=== PATIENT | female | born 1945 | race Caucasian/White ===

== ENCOUNTER 2016-08-13 05:27 | Day surgery (SDC) | payer MEDICARE, OTHER ==
[~2016-08-13] VITALS: Ht 162.6 cm; Wt 110.3 kg
[2016-08-13] VITALS (7 sets, daily range): BP systolic 104–137; BP diastolic 54–86; PULSE 16–75; TEMP 97.6–98.1
[~2016-08-13 05:27] MED LIST: ALEVE 220MG220 MG PO; AMITRIPTYLINE H25 M1 PO; ASPIRIN E.C. 8181 MG PO; BIAXIN 500MG T500 MG PO; CAL-MAG1 TAB PO; CLARITIN 1010 MG/TAB PO; FLEXERIL 1010 MG/TAB PO; HYZAAR 50-12.1 UDTAB PO; LORTAB 5/500 501 TAB PO; MOBIC15 MG PO; MULTIPLE VITAMI1 CAP PO; NEXIUM40 MG PO; NORCO 325 MG-51 TAB PO; PEPCID 20MG TAB20 MG PO; POTASSIUM/CALCIUM; PREDNISONE20 MG PO; PROAIR HFA0.09 MG/AC IH; SYNTHROID 0.0.025 MG PO; SYNTHROID0.05 MG/TA PO; TRIAMTERENE AND1 TA1 PO; VALIUM 5MG T5 MG/TAB PO; [UNRECOGNIZED DRUG - OTHER]; [UNRECOGNIZED DRUG - OTHER] PO; [UNRECOGNIZED DRUG - OTHER] PO
[2016-08-13] MEDS ORDERED: VITAMINC1000TA PO (06:39)
[2016-08-13] MEDS ORDERED: CALCIUM 600-D 61 TAB PO (06:39)
[2016-08-13] MEDS ORDERED: MASON NATURAL1200 MG PO (06:40)
[2016-08-13] MEDS ORDERED: NORCO 325 MG-7.1 TAB PO (10:50)
== END 2016-08-13 11:05 | disposition home or self-care (01) ==
LOC: SDCO 05:27
DX: S83.242A Other tear of medial meniscus, current injury, left knee, initial encounter (principal); M94.262 Chondromalacia, left knee; M11.262 Other chondrocalcinosis, left knee; M19.90 Unspecified osteoarthritis, unspecified site; Z87.19 Personal history of other diseases of the digestive system; E07.9 Disorder of thyroid, unspecified; I10 Essential (primary) hypertension; Z79.899 Other long term (current) drug therapy
CPT/HCPCS: J0171; J0690; J1100; J1170; J1885; J2405; J2704; J3010; J7120

== ENCOUNTER → 2017-11-07 | Outpatient (CLI) | payer MEDICARE, OTHER ==
[~2017-11-07] MED LIST changes: +CALCIUM 600-D 61 TAB PO; +MASON NATURAL1200 MG PO; +NORCO 325 MG-7.1 TAB PO; +VITAMINC1000TA PO
== END ==
LOC: MC.RAD 10:13
DX: Z12.31 Encounter for screening mammogram for malignant neoplasm of breast (principal)

== ENCOUNTER 2018-03-24 07:00 | Day surgery (SDC) | payer MEDICARE, OTHER ==
[~2018-03-24] VITALS: Ht 162.6 cm; Wt 116.2 kg
[2018-03-24] VITALS (15 sets, daily range): BP systolic 87–147; BP diastolic 55–113; PULSE 53–75; TEMP 97.7
[~2018-03-24 07:00] MED LIST changes: -SYNTHROID0.05 MG/TA PO; +SYNTHROID0.075 MG/T PO
[2018-03-24] MEDS ORDERED: ASPIRIN 81M81 MG/TA2 PO (08:03)
[2018-03-24] MEDS ORDERED: MYRBETR25MG PO (08:12)
[2018-03-24 08:41] LABS: HEMOGLOBIN 11.9 g/dl (12.5-16.0); MEAN CELL VOLUME 93 fl (80.0-100.0); MEAN CORPUSCULAR HEMOGLOBIN 31 pg (27.0-31.0); MEAN CORPUSCULAR HGB CONC 33 g/dl (33.0-37.0); PLATELET COUNT 289 K/mm3 (130-400); RED BLOOD COUNT 3.89 M/mm3 (4.10-5.30); REDCELL DISTRIBUTION WIDTH-CV 13.9 % (11.5-14.5)
[2018-03-24 08:43] LABS: HEMATOCRIT 36.3 % (37.0-47.0)
[2018-03-24 08:47] LABS: INR 0.9 (0.8-3.0); PROTHROMBIN TIME 10.3 SECONDS (9.7-12.8)
[2018-03-24 09:02] LABS: CALCIUM 8.9 mg/dL (8.4-10.2); CREATININE, serum 0.91 mg/dL (0.52-1.25); POTASSIUM 4.1 mmol/L (3.4-5.0)
== END 2018-03-24 15:35 | disposition home or self-care (01) ==
LOC: COL.CAR 07:00
PROVIDERS: Internal Medicine Cardiovascular Disease
DX: R94.39 Abnormal result of other cardiovascular function study (principal); I10 Essential (primary) hypertension; E78.5 Hyperlipidemia, unspecified; G47.33 Obstructive sleep apnea (adult) (pediatric); E03.9 Hypothyroidism, unspecified; K21.9 Gastro-esophageal reflux disease without esophagitis; E78.2 Mixed hyperlipidemia; N30.10 Interstitial cystitis (chronic) without hematuria; R56.9 Unspecified convulsions; J45.909 Unspecified asthma, uncomplicated; M47.896 Other spondylosis, lumbar region; M85.80 Other specified disorders of bone density and structure, unspecified site; R53.83 Other fatigue; Z88.8 Allergy status to other drugs, medicaments and biological substances; Z88.5 Allergy status to narcotic agent; Z88.1 Allergy status to other antibiotic agents; Z88.6 Allergy status to analgesic agent; Z90.710 Acquired absence of both cervix and uterus; Z90.49 Acquired absence of other specified parts of digestive tract; Z85.828 Personal history of other malignant neoplasm of skin; Z87.891 Personal history of nicotine dependence; Z82.49 Family history of ischemic heart disease and other diseases of the circulatory system
CPT/HCPCS: C1769; J1644; J2250; J3010; Q9967

== ENCOUNTER → 2018-06-07 | Outpatient (CLI) | payer MEDICARE, OTHER ==
[~2018-06-07] MED LIST changes: +ASPIRIN 81M81 MG/TA2 PO; +MYRBETR25MG PO
== END ==
LOC: MHCPAIN 09:43
DX: G89.29 Other chronic pain (principal); M47.817 Spondylosis without myelopathy or radiculopathy, lumbosacral region; M53.3 Sacrococcygeal disorders, not elsewhere classified
CPT/HCPCS: G0463

== ENCOUNTER → 2018-06-15 | Outpatient (CLI) | payer MEDICARE, OTHER | LOC: MHCPAIN 12:40 | DX: M47.817 Spondylosis without myelopathy or radiculopathy, lumbosacral region (principal); M54.16 Radiculopathy, lumbar region | CPT/HCPCS: J1040; Q9967 ==

== ENCOUNTER → 2018-07-05 | Outpatient (CLI) | payer MEDICARE, OTHER | LOC: MHCPAIN 09:59 | DX: G89.29 Other chronic pain (principal); M47.817 Spondylosis without myelopathy or radiculopathy, lumbosacral region; M53.3 Sacrococcygeal disorders, not elsewhere classified | CPT/HCPCS: G0463 ==

== ENCOUNTER → 2018-08-17 | Outpatient (CLI) | payer MEDICARE, OTHER | LOC: MHCPAIN 12:50 | DX: M47.817 Spondylosis without myelopathy or radiculopathy, lumbosacral region (principal); M54.16 Radiculopathy, lumbar region ==

== ENCOUNTER → 2018-08-22 | Outpatient (CLI) | payer MEDICARE, OTHER | LOC: MHCPAIN 08:46 | DX: G89.29 Other chronic pain (principal); M47.817 Spondylosis without myelopathy or radiculopathy, lumbosacral region; M53.3 Sacrococcygeal disorders, not elsewhere classified | CPT/HCPCS: G0463 ==

== ENCOUNTER → 2018-08-31 | Outpatient (CLI) | payer MEDICARE, OTHER | LOC: MHCPAIN 13:20 | DX: M47.817 Spondylosis without myelopathy or radiculopathy, lumbosacral region (principal); M54.16 Radiculopathy, lumbar region | CPT/HCPCS: J1100; J3010 ==

== ENCOUNTER → 2018-11-06 | Outpatient (CLI) | payer MEDICARE, OTHER | LOC: MHCPAIN 09:43 | DX: G89.29 Other chronic pain (principal); M47.817 Spondylosis without myelopathy or radiculopathy, lumbosacral region; M53.3 Sacrococcygeal disorders, not elsewhere classified | CPT/HCPCS: G0463 ==

== ENCOUNTER → 2018-11-14 | Outpatient (CLI) | payer MEDICARE, OTHER | LOC: MHCPAIN 13:51 | DX: M25.551 Pain in right hip (principal) | CPT/HCPCS: J1040 ==

== ENCOUNTER → 2019-03-13 | Outpatient (CLI) | payer MEDICARE, OTHER | LOC: MHCPAIN 09:55 | DX: G89.29 Other chronic pain (principal); M47.817 Spondylosis without myelopathy or radiculopathy, lumbosacral region; M54.16 Radiculopathy, lumbar region; M53.3 Sacrococcygeal disorders, not elsewhere classified; M96.1 Postlaminectomy syndrome, not elsewhere classified; M47.814 Spondylosis without myelopathy or radiculopathy, thoracic region | CPT/HCPCS: G0463 ==

== ENCOUNTER → 2019-03-13 | Outpatient (CLI) | payer MEDICARE, OTHER | LOC: MC.RAD 13:12 | DX: Z12.31 Encounter for screening mammogram for malignant neoplasm of breast (principal) ==

== ENCOUNTER 2019-08-18 01:11 | Emergency (ER) | payer MEDICARE ==
[~2019-08-18] VITALS: Ht 162.6 cm; Wt 113.6 kg
[~2019-08-18 01:11] MED LIST changes: +BIOTIN300 MCG PO; +BIOTIN5000 MCG PO; +CARTIA XT120 MG PO; +GENTAMICIN I40 MG/ML; +LAMISIL250 M1 PO; +LIPITOR 40MG TA40 MG PO; +MULTI VITAMINS1 TAB PO; +PRILOSEC 20MG20 MG PO; +VENTOLIN0.09 MG IH
[2019-08-18 01:57] VITALS: TEMP 97.7
[2019-08-18 02:02] LABS: BASO % 0.4 % (0.0-2.0); EOS # 0.3 (0.0-0.7); EOS % 3.5 % (0-4.0); GRAN # 5.5 (1.4-6.5); GRAN % 56.3 % (42.2-75.2); HEMATOCRIT 38.9 % (37.0-47.0); HEMOGLOBIN 12.9 g/dl (12.5-16.0); INR 0.9 (0.8-3.0); LYMPH % 30.9 % (20.0-51.0); MEAN CELL VOLUME 93 fl (80.0-100.0); MEAN CORPUSCULAR HEMOGLOBIN 31 pg (27.0-31.0); MEAN CORPUSCULAR HGB CONC 33 g/dl (33.0-37.0); MEAN PLATELET VOLUME 9.9 fl (7.4-10.4); MONO # 0.8 (0.1-0.6); MONO % 8.5 % (1.7-9.3); PLATELET COUNT 300 K/mm3 (130-400); REDCELL DISTRIBUTION WIDTH-CV 13.8 % (11.5-14.5)
[2019-08-18 02:08] LABS: ALANINE AMINOTRANSFERASE 27 U/L (9-52); ALBUMIN 4.4 gm/dL (3.5-5.0); ALKALINE PHOSPHATASE 91 U/L (50-136); ANION GAP 12 mmol/L (7-16); AST,SGOT 25 U/L (15-37); BILIRUBIN,TOTAL 0.6 mg/dL (0.0-1.0); BLOOD UREA NITROGEN 26 mg/dL (7-17); CALCIUM 9.3 mg/dL (8.4-10.2); CARBON DIOXIDE 27 mmol/L (22-30); CHLORIDE 102 mmol/L (98-107); CREATININE, serum 1.23 (0.52-1.25); GLUCOSE 98 mg/dL (74-106); POTASSIUM 4.3 mmol/L (3.4-5.0); SODIUM 141 mmol/L (137-145); TOTAL PROTEIN 7.9 gm/dL (6.4-8.2)
[2019-08-18 02:22] LABS: TROPONIN-I < 0.012 ng/mL (0.000-0.035)
[2019-08-18 06:33] VITALS: BP 111/56; PULSE 65
== END 2019-08-18 06:33 | disposition home or self-care (01) ==
LOC: COL.ER 01:11
PROVIDERS: Emergency Medicine
DX: R07.9 Chest pain, unspecified (principal); I10 Essential (primary) hypertension; K21.9 Gastro-esophageal reflux disease without esophagitis; E03.9 Hypothyroidism, unspecified; Z79.82 Long term (current) use of aspirin
CPT/HCPCS: J7040

== ENCOUNTER → 2020-01-01 | Outpatient (CLI) | payer MEDICARE | LOC: MC.RAD 14:07 | DX: N63.10 Unspecified lump in the right breast, unspecified quadrant (principal) | CPT/HCPCS: G0279 ==

== ENCOUNTER → 2020-03-25 | Outpatient (CLI) | payer MEDICARE | LOC: MC.RAD 09:53 | DX: Z12.31 Encounter for screening mammogram for malignant neoplasm of breast (principal); N64.1 Fat necrosis of breast; N63.20 Unspecified lump in the left breast, unspecified quadrant; Z98.890 Other specified postprocedural states ==

== ENCOUNTER → 2021-11-10 | Outpatient (CLI) | payer MEDICARE | LOC: COL.RAD 07:00 | DX: M47.26 Other spondylosis with radiculopathy, lumbar region (principal); M48.061 Spinal stenosis, lumbar region without neurogenic claudication; M43.8X6 Other specified deforming dorsopathies, lumbar region ==

== ENCOUNTER 2022-04-09 13:16 | Emergency (ER) | payer MEDICARE ==
[~2022-04-09] VITALS: Ht 162.6 cm; Wt 120.5 kg
[2022-04-09 13:22] VITALS: TEMP 97.6
[2022-04-09 15:01] VITALS: BP 177/66; PULSE 88
== END 2022-04-09 15:02 | disposition home or self-care (01) ==
LOC: COL.ER 13:16
DX: S83.91XA Sprain of unspecified site of right knee, initial encounter (principal); Z79.01 Long term (current) use of anticoagulants; X50.1XXA Overexertion from prolonged static or awkward postures, initial encounter; Y93.01 Activity, walking, marching and hiking
CPT/HCPCS: 31869; L1830; L1846